=== PATIENT | male | born 1975 | race Caucasian/White ===

== ENCOUNTER 2016-09-13 08:06 | Emergency (ER) | payer OTHER ==
[~2016-09-13] VITALS: Ht 177.8 cm; Wt 72.6 kg
[2016-09-13 08:06] VITALS: BP 136/94
[~2016-09-13 08:06] MED LIST: ALEVE220 MG PO; CIPROFLOXACIN500 M1 PO; IBUPROFEN 600600 M1 PO; NORCO 5-325 TA1 EACH PO; ZOFRAN ODT4 M1 PO
[2016-09-13] MEDS ORDERED: AMOXICILLIN 50500 M1 PO (08:48)
[2016-09-13] MEDS ORDERED: TRAMADOL 50 MG50 MG PO (08:48)
== END 2016-09-13 08:58 | disposition home or self-care (01) ==
LOC: ER 08:06
DX: K04.7 Periapical abscess without sinus (principal); G43.909 Migraine, unspecified, not intractable, without status migrainosus; G40.909 Epilepsy, unspecified, not intractable, without status epilepticus; H53.50 Unspecified color vision deficiencies; F17.210 Nicotine dependence, cigarettes, uncomplicated; Z85.028 Personal history of other malignant neoplasm of stomach